=== PATIENT | female | born 1995 | race African-American/Black ===

== ENCOUNTER 2017-12-28 19:27 | Emergency (ER) | payer OTHER ==
[2017-12-28] MEDS ORDERED: Lidocaine 1% PF 5 ML VIAL ONE (19:57)
== END 2017-12-28 20:21 | disposition home or self-care (01) ==
LOC: ERS 19:27
DX: N75.1 Abscess of Bartholin's gland (principal); M41.9 Scoliosis, unspecified
CPT/HCPCS: 56420; 87070; 87205; J2001

== ENCOUNTER 2018-01-01 15:36 | Emergency (ER) | payer OTHER ==
[2018-01-01] MEDS ORDERED: Lidocaine 1% PF 5 ML VIAL ONE (16:26)
[2018-01-01] MEDS ORDERED: Sodium Bicarbonate 2.5 MEQ/5 ML VIAL ONE (16:27)
== END 2018-01-01 16:04 | disposition home or self-care (01) ==
LOC: ERS 15:36
DX: N75.1 Abscess of Bartholin's gland (principal); M41.9 Scoliosis, unspecified
CPT/HCPCS: 56420; 96372; J2001

== ENCOUNTER 2018-10-06 13:49 | Outpatient (CLI) | payer OTHER ==
--- NOTE | 2018-10-06 15:56 | ULT ---
OBSTETRIC SONOGRAM UMBILICAL ARTERY DUPLEX EXAM: HISTORY: Intrauterine growth retardation. Third-trimester gestation. FINDINGS: Multiple transabdominal sonographic views of the gravid uterus show a single uterine gestation in cep halic presentation. Cervix is obscured. Grade II placenta is anterior. Amniotic fluid is within no rmal limits. Advanced age limits anatomic detail. Amniotic fluid is unremarkable. Measuremen ts are as follows: Biparietal diameter: 34 weeks 6 days Head circumference: 36 weeks 1 day Abdominal circumference: 32 weeks 6 days Femur length: 36 weeks 2 days Estimated date of delivery based on today's sonogram is 11/09/2018. Hadlock percentile 2%. Estimated weight 5 pounds 4 ounces (2394 gm). Good color and spectral Doppler flow within the umbilical artery. Umbilical artery resistive index i s 0.6. S/D ratio is 2.3. IMPRESSION: Single viable intrauterine gestation that is small for gestational age. Estimated weight 2394 gm. Estimated gestational age based on today's sonogram 35 weeks 1 day. No focal abnormalities are visible. POS: NADEEN
== END 2018-10-06 13:50 | disposition home or self-care (01) ==
LOC: BICULT 13:49
PROVIDERS: ATTEND Student in an Organized Health Care Education/Training Program
DX: O98.719 Human immunodeficiency virus [HIV] disease complicating pregnancy, unspecified trimester (principal); Z3A.35 35 weeks gestation of pregnancy
CPT/HCPCS: 76700; 76805

== ENCOUNTER 2018-10-08 06:34 | Inpatient (IN) | payer OTHER ==
[2018-10-08 07:27] VITALS: BMI 21.6
[2018-10-08] MEDS: Lactated Ringer's 1,000 ML IV SCH ×2 (07:30→10:18)
[2018-10-08] MEDS ORDERED: Butorphanol Tartrate 1 MG/ML VIAL SLOW IVP PRN (08:14)
[2018-10-08] MEDS ORDERED: Ondansetron PF 4 MG/2 ML Vial IVP PRN (08:14)
[2018-10-08] MEDS ORDERED: Acetaminophen 500 MG TAB PO PRN (08:14)
[2018-10-08] MEDS ORDERED: Lidocaine 1% (PF) 30 ML VIAL SC PRN ×2 (08:14→09:23)
[2018-10-08] MEDS ORDERED: Promethazine HCl 25 MG/ML VIAL IM PRN (08:14)
[2018-10-08] MEDS ORDERED: NS / Oxytocin 40 units/1000ml 1,000 ML IV PRN (08:14)
--- NOTE | 2018-10-08 08:23 | PDOC.LDHP ---
Labor and Delivery H&P Chief complaint: scheduled induction HPI: 22 yo @ 38.2 wks by 14.1 wk US presents for induction. Last cervical check at clinic /-2. Denies vaginal discharge, bleeding, contractions. Feels movement. Has been compliant with HIV medication, last took yesterday. Did not bring with her to hospital. PCP: Dr. Miller Current gestational age (weeks): 38 (38.2) Grav: 2 Para: 1 OB History Details: 1 normal vaginal delivery Current complications: other (HIV+, anemia) Current medications: pre-luis vitamins, iron, other (HIV antiviral) Previous surgical history: other (scoliosis surgery) Allergies/Adverse Reactions: Allergies Allergy/AdvReac Type Severity Reaction Status Date / Time No Known Allergies Allergy Verified 10/08/18 07:28 Social history: none - Physical Exam Vital signs reviewed and normal: yes General: NAD Heart: RRR Lungs: CTAB Abdomen: NTTP Extremeties: no edema FHT: category 1 (135/mod/+accel/no decel) - Vaginal Exam cm dilated: 3 (per nurse) Effacement: 75% Station: -2 - OB Labs Blood type: O RH: positive Antibody Screen: negative HIV: positive HEPSAg: negative 1 hour GCT: negative (73) GBS: negative Rubella: immune Additional Labs: Sickle cell negative Hgb 9.9 09/22 HIV viral copy <20 - Assessment L&D Assessment: medically indicated induction - Plan Plan: admit to L&D -: IOL - cervical check by nurse /-2, soft, posterior - Bishops score 8, will start pitocin - CAT I - does not desire epidural HIV+ - managed by Dr. Delarosa. Compliant on HAART with VL <1000 during entire - Last viral load 09/2018 was <20 - Last took home med yesterday. Did not bring with her. - Will start AZT therapy Anemia - continue PNV and iron Dispo: admit to L&D for medically indicated IOL Addendum - Attending - Attending Attestation Date/Time: 10/08/18 5166 I personally evaluated the patient and discussed the management with Dr. Miller and Adali. I agree with and repeated the History, Examination, Assessment and Plan documented above with any addition or exceptions noted below. HIV+, undetectable VL -continue home meds -AZT in labor per protocol -avoid FSE/instrumentation if possible -AZT for pp; discussed with neonatology FGR, 2% on most recent sono with normal dopplers -induction recommended as soon as possible by MFM -pitocin for induction GBS negative. Does not desire epidural.
[2018-10-08 08:45] LABS: Hemoglobin 9.2 g/dL (12.0-16.0); Mean Corpuscular HGB CONC 31.7 g/dL (32.0-36.0); Mean Corpuscular Hemoglobin 24.8 pg (27.0-31.0); Mean Corpuscular Volume 78.2 fL (78.0-98.0); Platelet Count 203 thou/uL (130-400); RBC Distribution Width 14.8 % (11.5-14.5); White Blood Cell (WBC) Count 10.6 thou/uL (4.8-10.8)
[2018-10-08 09:17] LABS: HBSAg Index 0.23 S/CO (0-0.99); Hep B Surf Ag Non-Reactive S/CO (NonReactive); Syphilis Antibody Nonreactive (Nonreactive); Syphilis Antibody Index 0.04 S/CO (<1.00 Non-Reactive)
[2018-10-08] MEDS ORDERED: Zidovudine 200 MG/20 ML VIAL IVPB SCH (09:30)
[2018-10-08] MEDS ORDERED: NS w/ Oxytocin 10 units 500 ML IV SCH (09:30)
[2018-10-08] MEDS ORDERED: ZIDOVUDINE IVPB SCH (10:45)
[2018-10-08] MEDS ORDERED: WATER IVPB SCH (10:45)
[2018-10-08] MEDS ORDERED: DEXTROSE 5% IVPB SCH (10:45)
--- NOTE | 2018-10-08 10:56 | PDOC.LDPN ---
Labor & Delivery Progress Note - Subjective Subjective: comfortable, no concerns - Objective Vital signs reviewed and normal: yes General: NAD FHT: category 1 (130/mod/+accel/no decel) [place] contractions every: 7 min Plan: pitocin for augmentation -: IOL - cervical check by nurse /-2, soft, posterior, Bishops score 8 - CAT I - does not desire epidural - pitocin started @ 1000. Pit currently at 8 with ctx q7min, nurse plans to increase pit. Plan for cervical check 4 hrs after starting pit. HIV+ - managed by Dr. Delarosa. Compliant on HAART with VL <1000 during entire - Last viral load 09/2018 was <20 - Last took home med yesterday. Did not bring with her, mother said she would be able to bring to hospital tomorrow. - Will start AZT therapy, pharmacy to send up to floor Anemia - continue PNV and iron Addendum - Attending - Attending Attestation Date/Time: 10/08/18 7189 I personally evaluated the patient and discussed the management with Dr. Bro. I agree with the History, Examination, Assessment and Plan documented above with any addition or exceptions noted below.
[2018-10-08] MEDS ORDERED: Zidovudine 400 MG in Dextrose 5% in Water 250 ML IVPB SCH (11:00)
--- NOTE | 2018-10-08 14:16 | PDOC.LDPN ---
Labor & Delivery Progress Note - Subjective Subjective: painful contractions - Objective Vital signs reviewed and normal: yes General: breathing through contractions Effacement: 90% Station: -2 FHT: category 1 [place] contractions every: 2 - Assessment (1) HIV (human immunodeficiency virus infection) Current Visit: Yes Status: Acute (2) Term Code(s): Z34.80 - ENCOUNTER FOR SUPRVSN OF NORMAL , UNSP TRIMESTER Current Visit: Yes Status: Acute -: Labor check - /-2 - Cat 1 strip, no decels, cxn q2-3 minutes - will plan for AROM in order to control fluids - anticipatory management HIV+ - managed by Dr. Delarosa. Compliant on HAART with VL <1000 during entire - Last viral load 09/2018 was <20 - On AZT IV Anemia - continue PNV and iron Addendum - Attending - Attending Attestation Date/Time: 10/08/18 7514 I personally evaluated the patient and discussed the management with Dr. Bro. I agree with the History, Examination, Assessment and Plan documented above with any addition or exceptions noted below.
--- NOTE | 2018-10-08 14:37 | PDOC.OPDEL ---
OB Operative/Delivery Note Delivery Dr/Surgeon: Angela Medina Assist: Sravanthi Pre-Delivery Diagnosis: medically indicated induction Procedure/Post Delivery Dx: spontaneous vaginal delivery Weeks gestation: 38 (38.2wks) Anesthesia: none - Findings A Sex: male - 1 min: 9 - 5 min: 9 - Additional Findings/Plan Placenta delivered: spontaneous Repaired Obstetrical Laceration: 1st degree (hemostatic, did not require repair) Estimated blood loss: 200ml Compilations/Other Findings: This is 22yo F @ 38.2wks who delivered a viable M infant at 1425 on . EBL 200ml. Following an antepartum course complicated by HIV + as well as IUGR, a vigorous M was delivered over an intact perineum in the right occipitoanterior position. Anterior Shoulder and then remainder of the body delivered. Nuchal cord x 1. The head was held down and mouth and nares were bulb suctioned. Cord clamped after delayed cord clamping and cut and cord blood collected. Placenta delivered intact with a 3 vessel cord noted. Fundal massage was performed and the fundus was firm. The cervix and vagina were inspected and found to have a small first degree lac that was hemostatic and did not require repair. Infant went to nursery in good condition for routine care. Apgars were 9/9 at 1 & 5 minutes, respectively. Patient tolerated delivery well and went to after routine recovery/care. Addendum - Attending - Attending Attestation Date/Time: 10/09/18 0661 I personally evaluated the patient and discussed the management with Dr. Miller and Adam. I agree with the History, Examination, Assessment and Plan documented above with any addition or exceptions noted below. I was present for the entire delivery.
[2018-10-08] MEDS ORDERED: Lanolin Ointment 7 GM TUBE TOP PRN (14:40)
[2018-10-08] MEDS ORDERED: Preparation H Ointment 28 GM TUBE PR PRN (14:40)
[2018-10-08] MEDS ORDERED: Adacel (T-DAP) 0.5 ML SYRINGE IM ONE (14:40)
[2018-10-08] MEDS ORDERED: diphenhydrAMINE 25 MG CAP PO PRN (14:40)
[2018-10-08] MEDS ORDERED: Bisacodyl 10 MG SUPP PR PRN (14:40)
[2018-10-08] MEDS ORDERED: Misoprostol 200 MCG TAB VAG PRN (14:40)
[2018-10-08] MEDS ORDERED: Methylergonovine 0.2 MG TAB PO PRN (14:40)
[2018-10-08] MEDS ORDERED: Milk Of Magnesia 30 ML UDCUP PO PRN (14:40)
[2018-10-08] MEDS ORDERED: Ibuprofen 800 MG TAB PO PRN (14:40)
[2018-10-09 06:49] VITALS: BP 105/53; TEMP 98.5
[2018-10-09 07:30] LABS: Hemoglobin 8.1 g/dL (12.0-16.0); Mean Corpuscular HGB CONC 31.7 g/dL (32.0-36.0); Mean Corpuscular Hemoglobin 24.9 pg (27.0-31.0); Mean Corpuscular Volume 78.5 fL (78.0-98.0); Mean Platelet Volume 10.6 fL (7.4-10.4); Platelet Count 182 thou/uL (130-400); RBC Distribution Width 14.9 % (11.5-14.5); Red Blood Cell (RBC) Count 3.25 mill/uL (4.20-5.40); White Blood Cell (WBC) Count 12.3 thou/uL (4.8-10.8)
--- NOTE | 2018-10-09 07:51 | PDOC.PP ---
Post Progress Note Post Day #: 1 Subjective: Pt reports doing well overnight. Denies any acute events overnight. Pt has been getting up and walking around. Pt denies any headache, lightheadness or dizziness. Denies any fever, chills. Denies any chest pain or SOB. Pt reports lochia as light. tolerating PO. Denies any N/V/D/C. Pt says she feels like she is ready to go home. PO intake tolerated: yes Flatus: yes Ambulation: yes Vital Signs (12 hours) Temp Pulse Resp BP Pulse Ox 10/09/18 05:00 98.5 F 85 18 105/53 L 10/08/18 20:00 98.6 F 86 18 107/57 L 100 Weight Weight 58.967 kg - Physical Examination General: NAD Cardiovascular: no m/r/g, RRR Respiratory: clear to auscultation bilaterally, non-labored breathing Abdominal: + bowel sounds, lochia (reported as light), no distention, appropriately TTP Fundus firm & at: below umbilicus Extremities: negative homans (B) Neurological: no gross focal deficits Psychiatric: A&Ox3, normal affect Result Diagrams: 10/09/18 06:01 Additional Labs: Post Labs Blood Type O POSITIVE 10/08/18 07:50 Hep Bs Antigen Non-Reactive S/CO (NonReactive) 10/08/18 07:50 (1) Anemia affecting Code(s): O99.019 - ANEMIA COMPLICATING , UNSPECIFIED TRIMESTER Status : Acute (2) HIV (human immunodeficiency virus infection) Status: Acute (3) Term Code(s): Z34.80 - ENCOUNTER FOR SUPRVSN OF NORMAL , UNSP TRIMESTER Status: Acute - Assessment/Plan 22 yo ->2 came in for IOL due to IUGR. Delivered a SGA M via on 10/08 @ 14:25 -Routine Post care -Pt pain minimal. -Mom bottle feeding. -Lochia reported as light. HIV+ - managed by Dr. Delarosa. Compliant on HAART with VL <1000 during entire - Last viral load 09/2018 was <20 -tx ppx with AZT during delivery. Restart home med today. Anemia - continue PNV and iron BID -Hgb down from 9.2->8.1 today. Denies any signs or sx's. Addendum - Attending - Attending Attestation Date/Time: 10/09/18 5670 I personally evaluated the patient and discussed the management with Dr. Miller and Adali. I agree with and repeated the History, Examination, Assessment and Plan documented above with any addition or exceptions noted below. Patient doing well. Continue home ART. Recommend LARC for BC. Follow up in clinic. Discussed importance of AZT for in detail and will defer circ to outpatient.
[2018-10-09] MEDS ORDERED: Prenatal Vitamin 1 TAB PO SCH (09:00)
[2018-10-09] MEDS ORDERED: (Bictegrav/Emtricit/Tenofov Ala [Biktarvy 50-200-25 Mg Tablet] PO SCH (09:00)
[2018-10-09] MEDS: Ferrous Sulfate 325 MG TAB PO SCH ×2 (09:36→09:41)
[2018-10-09] MEDS: Docusate Calcium (SURFAK) 240 MG CAP PO SCH ×2 (09:36→09:41)
[2018-10-09] MEDS: Lactated Ringer's 1,000 ML IV SCH ×2 (09:41→09:42)
== END 2018-10-09 18:00 | disposition home or self-care (01) | DRG 807 ==
LOC: L&D 06:34 → 3SW 17:27
PROVIDERS: ADMIT Emergency Medicine; ATTEND Emergency Medicine
PROC: 10E0XZZ Delivery of Products of Conception, External Approach (ICD-10-PCS; principal; 2018-10-08)
PROC: 3E033VJ Introduction of Other Hormone into Peripheral Vein, Percutaneous Approach (ICD-10-PCS; 2018-10-08)
DX: O98.72 Human immunodeficiency virus [HIV] disease complicating childbirth (principal); Z37.0 Single live birth; Z21 Asymptomatic human immunodeficiency virus [HIV] infection status; O69.81X0 Labor and delivery complicated by cord around neck, without compression, not applicable or unspecified; Z3A.38 38 weeks gestation of pregnancy; O70.0 First degree perineal laceration during delivery; O99.02 Anemia complicating childbirth; D64.9 Anemia, unspecified
CPT/HCPCS: 36415; 85027; 86780; 86850; 86900; 86901; 87340; 88307; 90715; J2001; J3485; J7070

== ENCOUNTER 2019-08-26 08:54 | Day surgery (SDC) | payer OTHER ==
[2019-08-26 09:40] VITALS: BP 112/71; TEMP 98.2; BMI 21.4
[2019-08-26] MEDS ORDERED: Iron Sucrose Complex 500 MG in Sodium Chloride 0.9% 250 ML 250 ML IVPB SCH (10:00)
[2019-08-26] MEDS ORDERED: Acetaminophen 500 MG TAB PO SCH (10:00)
--- NOTE | 2019-08-26 12:50 | PDOC.FPROB ---
FMR OB H&P: HPI - History of Present Illness Chief Complaint: Iron Infusion Indentification: History of Present Illness: Mrs. Stephens is a 23 y/o female @ 33.5W by LMP with a PMH significant for HIV who presents to the L&D Floor for an iron infusion. Per the patient, the has been uneventful thus far, and she has had appropriate follow-up for all of her OB and MFM appointments. She states that her N/V has been well-controlled, and that she has felt good movement without loss of fluid, vaginal bleeding or abdominal pain. She states that she was "borderline previa" but that she received a TVUS yesterday that demonstrated that she was no longer at risk for placenta previa. She does not know why she needs an iron infusion, only that she has consistently had "low iron". She denies any prolonged bleeding, fevers, chills, severe headaches, abnormal weight loss/gain, N/V/D, changes in vision, chest pain, shortness of breath, muscle aches/pains, significant swelling of her hands and feet, trauma, or drug/EtOH/tobacco abuse. She states that she sees Dr. Delarosa for her HIV follow-up, and states that she has been very compliant with her Bictarvy regimen , and has not missed any doses or had any adverse side-effects. Primary Care Physician: Dr. 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 Did state that one of her children has Sickle Cell Trait FMR OB H&P: Medications - Current Home Medications: Medication Instructions Recorded Confirmed Type Bictegrav/Emtricit/Tenofov Ala 1 tab PO DAILY 10/08/18 08/26/19 History [Biktarvy 50-200-25 mg Tablet] Acetaminophen [Tylenol Extra 500 mg PO Q6H PRN tab 10/09/18 08/26/19 Rx Strength] Ferrous Sulfate [Feosol] 325 mg PO BID-WM tab 10/09/18 08/26/19 Rx Vitamin 1 tab PO DAILY tab 10/09/18 08/26/19 Rx Allergies/Adverse Reactions: Allergies Allergy/AdvReac Type Severity Reaction Status Date / Time No Known Allergies Allergy Verified 08/26/19 09:37 FMR OB H&P: ROS - Review of Systems General: reports: weight/appetite/sleep changes (Weight gain). denies: fever/ chills, fatigue, recent trauma Eyes: denies: vision changes ENT: denies: nasal congestion, frequent nose bleed, sore throat Cardiovascular: denies: chest pain, edema Respiratory: reports: cough (Mild, patient unconcerned). denies: shortness of breath Gastrointestinal: denies: abdominal pain, nausea, vomiting, diarrhea Genitourinary (Female): denies: dysuria, hematuria Musculoskeletal: denies: pain, stiffness, arthritis/arthralgias Neurologic: denies: syncope, weakness, loss of counsciousness, headache Integumentary: denies: lesions Hematologic/Lymphatic: denies: prolonged or excessive bleeding FMR OB H&P: Vital Signs - Maternal Vital signs: Vital Signs - First Documented Temp Pulse Resp BP 98.2 F 75 18 112/71 08/26/19 09:22 08/26/19 09:22 08/26/19 09:22 08/26/19 09:22 - Heart Tones Baseline: 140 Variability: moderate Acceleration: present Deceleration: absent FMR OB H&P: Physical Exam - Physical Exam General: NAD HEENT: normocephalic and atraumatic, PERRLA, EOMI, MMM, conjunctiva clear, no scleral icterus, grossly normal vision, grossly normal hearing, normal nasal mucosa, oropharynx clear, good dention Neck: supple, FROM, trachea midline, no LAD Chest: non-tender to palpation, no lesions Breast: symmetric, non-tender Heart: RRR, normal S1/S2, no murmurs/rubs/gallops, pulses present, no edema General: CTAB, no respiratory distress, good air movement, no rales/rhonchi, no wheezing, no retractions Abdomen: gravid, non-tender, no masses Musculoskeletal: pulses present, FROM in all four extremities, no misalignment/ asymmetry, no atrophy Neurological: sensation to pain,touch and proprioception grossly normal Skin: no rash, no jaundice Lymphatic: no unusual bruising or bleeding, no purpura, no petechia, no LAD Psychiatric: intact recent and remote memory, good judgement and insight - Pelvic Exam Presentation: Cephalic, per patient FMR OB H&P: A/P - Problem List (1) Anemia affecting Current Visit: No Status: Acute Code(s): O99.019 - ANEMIA COMPLICATING , UNSPECIFIED TRIMESTER Assessment and Plan: 1. Microcytic Anemia -Patient currently stable on the L&D Floor -Patient admits to a history of "low iron", but has little insight into general health -Iron Studies: Fe: 7 / Ferritin: 21 / TIBC: 495 / TIBC % Saturation: 4 -Recent blood smear demonstrated absolute neutropenia and microcytic anemia -Administer Fe Infusion per L&D Protocol -Ensure adequate follow-up in clinic with Dr. Miller and Dr. Delarosa -Plan for DC prior transfusion cessation Dispo: Patient currently stable during Fe Infusion. Expected LOS < 24H Discussion: Date/Time: 08/26/19 1242 This H&P was discussed with [] and [] who agree with the above documentation and plan. Addendum - Attending - Attending Attestation Date/Time: 08/26/19 1444 I personally evaluated the patient and discussed the management with Dr. Charles I agree with the History, Examination, Assessment and Plan documented above with any addition or exceptions noted below - 23 yo @33.5 weeks with h/ o HIV and anemia. Here for iron infusion. Denies any complaints. (+) FM. Afebrile VSS A/P: 1) IUP@33.5 weeks here for iron infusion due to anemia. Iron infusion per protocol. Follow-up as scheduled in clinic. Category 1 FHTs.
== END 2019-08-26 15:05 | disposition home or self-care (01) ==
LOC: SDC 08:54 → EDSTATUS 09:00 → SDC 15:05
PROVIDERS: ATTEND Family Medicine
DX: O99.013 Anemia complicating pregnancy, third trimester (principal); D50.9 Iron deficiency anemia, unspecified; O98.713 Human immunodeficiency virus [HIV] disease complicating pregnancy, third trimester; Z21 Asymptomatic human immunodeficiency virus [HIV] infection status; Z3A.33 33 weeks gestation of pregnancy; Z79.899 Other long term (current) drug therapy
CPT/HCPCS: 96361; 96365; 96366; 99282; J1756; J7050

== ENCOUNTER 2019-09-03 17:15 | Inpatient (IN) | payer OTHER ==
--- NOTE | 2019-09-03 14:07 | PDOC.FPROB ---
FMR OB H&P: HPI - History of Present Illness Chief Complaint: IOL Indentification: 23 yo @ 38.5 wks History of Present Illness: 23 yo comes in for medically indicated IOL 2/2 HIV+. Recommendation for delivery @ 38 weeks was by MFM. Pt viral load was 210 on last check with ID, Dr. Delarosa, back in July. Pt appropriated for . Primary Care Physician: Angela FMR OB H&P: Current - Care : 3 Para: 2001 Gestational age: 38.5 Due date: 09/12/19 - OB Labs Blood type: O RH: positive Antibody Screen: negative HIV: positive RPR: negative HepBsAg: negative Rubella: immune Quad screen: negative Urine drug screen: not done Gonorrhea: negative Chlamydia: negative 1 hour gtt: 102 A1c: 5.7 GBS: positive H&H: 9.7->8.6->8.2->8.3 Additional labs: Hep C neg Tb neg Vit B12 571, Folic Acid 9.7, Ferritin 7, Iron 21, Unsat IBC 474, Total IBC 495, %iron sat 4% FMR OB H&P: History - Past Medical History PMH: HIV, Microcytic Anemia - OB History OB History: 2 prior pregnancies. Delivered via SVDx2 - DISTRIBUTION DISPATCHER History DISTRIBUTION DISPATCHER History: Denies any abnormal paps. Hx HIV - Surgical History Sx History: hx scolosis surgery - Social History Social History: Denies any smoking, alcohol or illicit drug use - Family History Family History: Noncontributory 1 kid has sickle cell trait FMR OB H&P: Medications - Current Home Medications: Medication Instructions Recorded Confirmed Type Bictegrav/Emtricit/Tenofov Ala 1 tab PO DAILY 10/08/18 09/03/19 History [Biktarvy 50-200-25 mg Tablet] Acetaminophen [Tylenol Extra 500 mg PO Q6H PRN tab 10/09/18 09/03/19 Rx Strength] Ferrous Sulfate [Feosol] 325 mg PO BID-WM tab 10/09/18 09/03/19 Rx Vitamin 1 tab PO DAILY tab 10/09/18 09/03/19 Rx Allergies/Adverse Reactions: Allergies Allergy/AdvReac Type Severity Reaction Status Date / Time No Known Allergies Allergy Verified 08/26/19 09:37 FMR OB H&P: ROS - Review of Systems General: denies: fever/chills, weight/appetite/sleep changes, fatigue Eyes: denies: vision changes, double vision ENT: denies: nasal congestion, sore throat Cardiovascular: denies: chest pain, palpitation, edema Respiratory: denies: cough, congestion, shortness of breath Gastrointestinal: denies: abdominal pain, nausea, vomiting, diarrhea Genitourinary (Female): denies: dysuria, vaginal discharge, vaginal bleeding, contractions, vaginal pressure Musculoskeletal: denies: pain, tenderness Neurologic: denies: weakness, headache Integumentary: denies: itching, rash, lesions Psychological: denies: depression, anxiety FMR OB H&P: Vital Signs - Maternal Vital signs: BP 116/63 - Heart Tones Baseline: 140 Variability: moderate Acceleration: present Deceleration: absent Category: category 1 [place] contractions every: 5-6 min FMR OB H&P: Physical Exam - Physical Exam General: NAD, awake, alert and oriented HEENT: normocephalic and atraumatic, EOMI, MMM, grossly normal vision, grossly normal hearing Neck: supple, FROM Heart: RRR, normal S1/S2, no murmurs/rubs/gallops, pulses present, no edema General: CTAB, no respiratory distress, good air movement, no wheezing Abdomen: soft, non-tender Musculoskeletal: pulses present, FROM in all four extremities Neurological: sensation to pain,touch and proprioception grossly normal, no focal deficit Skin: no rash, good tugor Lymphatic: no unusual bruising or bleeding Psychiatric: intact recent and remote memory, normal mood and affect - Pelvic Exam Vulva: normal hair distribution, no lesions, no discharge, no blood SVE: /50-60/-3 Welch score: 5 Membranes: intact Presentation: cephalic/vertex FMR OB H&P: A/P - Problem List (1) Anemia affecting Status: Acute Code(s): O99.019 - ANEMIA COMPLICATING , UNSPECIFIED TRIMESTER (2) HIV (human immunodeficiency virus infection) Status: Acute (3) Term Status: Acute Code(s): Z34.80 - ENCOUNTER FOR SUPRVSN OF NORMAL , UNSP TRIMESTER Disposition: 23 yo @ 38.5 weeks presents for IOL 2/2 HIV #IOL -SVE 350/-3. Welch score 5 -Will give cytotec for cervical ripening -Will continuously monitor -There was concern for placenta previa but was ruled out at recent [facility] appointment. #HIV -Viral load 210 at last check with ID, Dr. Delarosa. Pt below #1000. Safe for routine -Zidovudine 2mg/kg/hr for loading then dose then continuously give 1mg/kg/hr for remainder labor -Avoid AROM, FSE and Methergine if all at possible #GBS positive -Will tx with ppx penicillin Microcytic Anemia of -Last hgb 8.3. Recently received Iron infusion 08/26. Will check CBC at admission -Iron labs low at check a few months ago. Discussion: Date/Time: 09/03/19 1305 This H&P was discussed with Dr. Miller and Dr. Fishman who agree with the above documentation and plan. Addendum - Attending - Attending Attestation Date/Time: 09/04/19 3279 I personally evaluated the patient and discussed the management with Dr. Miller and team. I agree with the History, Examination, Assessment and Plan documented above with any addition or exceptions noted below. Induction per [facility]. AZT per their recommendations as well.
[~2019-09-03 17:15] MED LIST: Acetaminophen 500 MG TAB PO PRN; Butorphanol Tartrate 1 MG/ML VIAL SLOW IVP PRN; Carboprost 250 MCG/ML AMP IM PRN; Ibuprofen 800 MG TAB PO PRN; Lidocaine 1% (PF) 30 ML VIAL SC PRN; Misoprostol 200 MCG TAB PR PRN; NS / Oxytocin 40 units/1000ml 1,000 ML IV PRN; Ondansetron PF 4 MG/2 ML Vial IVP PRN; Penicillin G Potassium 5 MILL.UNITS in Sodium Chloride 0.9% 100 ML IVPB SCH; Promethazine HCl 25 MG/ML VIAL IM PRN; hydrALAZINE 20 MG/ML VIAL SLOW IVP PRN
[2019-09-03 18:21] VITALS: BMI 21.8
[2019-09-03] MEDS: Lactated Ringer's 1,000 ML IV SCH (18:40)
[2019-09-03 19:31] LABS: HBSAg Index 0.19 S/CO (0-0.99); Hep B Surf Ag Non-Reactive S/CO (NonReactive)
[2019-09-03 19:34] LABS: Syphilis Antibody Nonreactive (Nonreactive); Syphilis Antibody Index 0.04 S/CO (<1.00 Non-Reactive)
[2019-09-03] MEDS ORDERED: Zidovudine 200 MG/20 ML VIAL IVPB SCH ×2 (20:45)
[2019-09-03] MEDS ORDERED: WATER IVPB SCH (21:30)
[2019-09-03] MEDS ORDERED: ZIDOVUDINE IVPB SCH (21:30)
[2019-09-03] MEDS ORDERED: DEXTROSE 5% IVPB SCH (21:30)
[2019-09-04] MEDS ORDERED: Misoprostol 100 MCG TAB VAG SCH
[2019-09-04] MEDS: Penicillin G 2.5 MILL.units 2.5 MILL.UNITS in Premix Bag 1 BAG IVPB SCH ×3 (01:17→12:54)
[2019-09-04] MEDS ORDERED: NS w/ Oxytocin 10 units 500 ML IV SCH (02:30)
[2019-09-04] MEDS: Lactated Ringer's 1,000 ML IV SCH ×2 (03:21→12:54)
[2019-09-04 06:21] LABS: Hemoglobin 10.1 g/dL (12.0-16.0); Mean Corpuscular HGB CONC 31.3 g/dL (32.0-36.0); Mean Corpuscular Hemoglobin 24.4 pg (27.0-31.0); Mean Corpuscular Volume 77.8 fL (78.0-98.0); Mean Platelet Volume 10.8 fL (7.4-10.4); Platelet Count 183 thou/uL (130-400); RBC Distribution Width 21.8 % (11.5-14.5); Red Blood Cell (RBC) Count 4.14 mill/uL (4.20-5.40); White Blood Cell (WBC) Count 10.6 thou/uL (4.8-10.8)
[2019-09-04] MEDS ORDERED: Misoprostol 200 MCG TAB ONE (08:13)
[2019-09-04] MEDS ORDERED: Adacel (T-DAP) 0.5 ML SYRINGE IM ONE (08:50)
[2019-09-04] MEDS ORDERED: Lanolin Ointment 7 GM TUBE TOP PRN (08:50)
[2019-09-04] MEDS ORDERED: Benzocaine-Menthol 82.5 ML CAN TOP PRN (08:50)
[2019-09-04] MEDS ORDERED: Milk Of Magnesia 30 ML UDCUP PO PRN (08:50)
[2019-09-04] MEDS ORDERED: diphenhydrAMINE 25 MG CAP PO PRN (08:50)
[2019-09-04] MEDS ORDERED: HYDROcodone/Acetaminophen 5/325 mg Tablet PO PRN (08:50)
[2019-09-04] MEDS ORDERED: Preparation H Ointment 28 GM TUBE PR PRN (08:50)
[2019-09-04] MEDS ORDERED: Bisacodyl 10 MG SUPP PR PRN (08:50)
[2019-09-04] MEDS ORDERED: Prenatal Vitamin 1 TAB PO SCH ×2 (09:00)
[2019-09-04] MEDS ORDERED: Bictegrav/Emtricit/Tenofov Ala [Biktarvy 50-200-25 Mg Tablet] PO SCH (09:00)
[2019-09-04] MEDS ORDERED: Ferrous Sulfate 325 MG TAB PO SCH ×3 (09:00→17:00)
--- NOTE | 2019-09-04 12:13 | PDOC.LDPN ---
Labor & Delivery Progress Note - Subjective Subjective: painful contractions, vaginal pressure - Objective Vital signs reviewed and normal: yes General: NAD, breathing through contractions Uterine fundus: non tender SVE: 6:30 Dilation: 5 Effacement: 75% Station: -1 FHT: category 1 (FHR 145), variability present [place] contractions every: 2-3 minutes - Assessment (1) Anemia affecting Code(s): O99.019 - ANEMIA COMPLICATING , UNSPECIFIED TRIMESTER Current Visit: No Status: Acute (2) HIV (human immunodeficiency virus infection) Current Visit: No Status: Acute (3) Term Code(s): Z34.80 - ENCOUNTER FOR SUPRVSN OF NORMAL , UNSP TRIMESTER Current Visit: No Status: Acute Plan: continue plan of care, pitocin for augmentation -: 23 yo @ 38.5 weeks presents for IOL 2/2 HIV #IOL -SVE /-1. -Pitocin for augmentation. -Continue to check with pain changes and every hour. -Pt does not have epidural. #HIV -Viral load 210 at last check with ID, Dr. Delarosa. Pt below #1000. Safe for routine -Zidovudine 2mg/kg/hr for loading then dose then continuously give 1mg/kg/hr for remainder labor -Avoid AROM, FSE and Methergine if all at possible #GBS positive -Been getting penicillin ppx Microcytic Anemia of -Last hgb 8.3. Recently received Iron infusion 08/26. -CBC hgb 10.1, MCV 77
[2019-09-04] MEDS: Docusate Calcium (SURFAK) 240 MG CAP PO SCH ×2 (12:53→21:37)
[2019-09-05 06:00] LABS: #Basophils 0.1 thou/uL (0.0-0.2); #Eosinphils 0.2 thou/uL (0.0-0.7); #Monocytes 0.5 thou/uL (0.11-0.59); #Neutrophils 9.8 thou/uL (1.40-6.50); %Basophils 0.9 % (0.0-1.0); %Eosinophils 1.4 % (0.0-10.0); %Lymphocytes 15.5 % (21.0-51.0); %Monocytes 4.2 % (0.0-10.0); Anisocytosis SLIGHT = 6-15 cells (100X) (0-5/hpf); Elliptocytes SLIGHT = 2-5 cells (100X) (0-1/hpf); Hemoglobin 8.2 g/dL (12.0-16.0); MDiff Complete? YES; Mean Corpuscular HGB CONC 32.2 g/dL (32.0-36.0); Mean Corpuscular Hemoglobin 25.2 pg (27.0-31.0); Mean Corpuscular Volume 78.3 fL (78.0-98.0); Mean Platelet Volume 10.9 fL (7.4-10.4); Platelet Count 142 thou/uL (130-400); RBC Distribution Width 21.9 % (11.5-14.5); Red Blood Cell (RBC) Count 3.24 mill/uL (4.20-5.40); White Blood Cell (WBC) Count 12.6 thou/uL (4.8-10.8)
[2019-09-05] MEDS: Docusate Calcium (SURFAK) 240 MG CAP PO SCH (08:12)
[2019-09-05 08:42] VITALS: BP 95/51; TEMP 97.8
--- NOTE | 2019-09-05 08:49 | PDOC.PP ---
Post Progress Note Post Day #: 1 Subjective: Pt reports doing well. Has no acute concerns or complaints at this time. Denies any pain. Reports tolerating PO. Reports minimal lochia. Denies any fever/ chills. Denies any chest pain or SOB. PO intake tolerated: yes Flatus: yes Ambulation: yes Vital Signs (12 hours) Temp Pulse Resp BP Pulse Ox 09/05/19 08:41 97.8 F 79 20 95/51 L 96 09/05/19 03:22 98.2 F 66 12 109/52 L 99 09/04/19 23:24 98.1 F 75 12 112/49 L 98 Weight Weight 59.421 kg - Physical Examination General: NAD Cardiovascular: no m/r/g, RRR Respiratory: clear to auscultation bilaterally, non-labored breathing Abdominal: + bowel sounds, lochia (reports as normal.), no distention, appropriately TTP Fundus firm & at: umbilicus Perineum: Intact. No sign of bleeding. Neurological: no gross focal deficits Psychiatric: A&Ox3, normal affect Result Diagrams: 09/05/19 04:25 Additional Labs: Post Labs Blood Type O POSITIVE 09/03/19 18:23 Hep Bs Antigen Non-Reactive S/CO (NonReactive) 09/03/19 18:23 (1) Anemia affecting Code(s): O99.019 - ANEMIA COMPLICATING , UNSPECIFIED TRIMESTER Status : Acute (2) HIV (human immunodeficiency virus infection) Status: Acute (3) Term Code(s): Z34.80 - ENCOUNTER FOR SUPRVSN OF NORMAL , UNSP TRIMESTER Status: Acute - Assessment/Plan 23 yo @ 38.6 weeks presents for IOL 2/2 HIV #Post Day 1 -Pt reports doing well. VSS -Reports pain well controlled -Pt ready for d/c. #HIV -Viral load 210 at last check with ID, Dr. Delarosa. Pt below #1000. Safe for routine -Received Zidovudine 2mg/kg/hr for loading then dose then continuously give 1mg/ kg/hr during the progression of labor -Pt to continue to take home Bitkarvy. #GBS positive -Adquately treated with 3 doses of penicillin Microcytic Anemia of -Hgb 10.1 on admission. Total QBL 680. -Hgb today 8.2. Pt reports being asx. -Will continue on Iron BID Addendum - Attending - Attending Attestation Date/Time: 09/05/19 1202 I personally evaluated the patient and discussed the management with Dr. Miller I agree with the History, Examination, Assessment and Plan documented above with any addition or exceptions noted below. Doing well and desires to go home. Will likely d/c mom and baby this afternoon pending completion of baby's routine lab work. Send on PO iron and bowel regimen. counseled on importance of adherence to iron supplementation. 1 week f/ u for repeat CBC. may need additional iron infusion at that time. Patient agreeable to this plan.
[2019-09-05] MEDS ORDERED: Ferrous Sulfate 325 MG TAB PO SCH ×3 (08:55→17:00)
--- NOTE | 2019-09-07 04:13 | PQF ---
[employer] EDY Jones LILLY CARTER [id number] CLINICAL DOCUMENTATION CLARIFICATION FORM: POST DISCHARGE Addendum to original discharge summary date: ____ Late entry note date: __ DATE: 09/07/2019 ATTN:LILLY CARTER Please exercise your independent, professional judgment in responding to the clarification form. Clinical indicators are provided on the bottom of this form for your review Please check appropriate box(s): [ x ] Acute blood loss anemia [ ] Post-op anemia related to acute blood loss [ ] Chronic Anemia [ ] Other diagnosis [ ] Unable to determine In addition, please specify: Present on Admission (POA): [ ] Yes [ x No [ ] Unable to determine For continuity of documentation, please document condition throughout progress notes and discharge summary. Thank You. CLINICAL INDICATORS - SIGNS / SYMPTOMS / LABS HGB 10.1 on 09/04 and 8.2 on 09/05 - Documented in Laboratory results HCT 32.2 on 09/04 to 25.2 on 09/05 - Documented in Laboratory results BP 97/52 on 09/04 and 95/51 on 09/05 - Documented in Vital signs RISK FACTORS Anemia affecting - Documented in PNs on 09/05 by Axel Miller Estimated blood loss - 485 HIV TREATMENTS: Ferrous sulfate 325 mg PO - Documented in Medication snapshot Will continue on Iron BID (This form is maintained as a part of the permanent medical record) 2014 [employer] All Rights Reserved Sandra [email or web address] [not provided] MTDD
--- NOTE | 2019-09-11 08:22 | DN ---
DATE OF PROCEDURE: 09/04/2019 DATE OF DELIVERY: 09/04/2019. RESIDENTS: 1. Anupam Gambino DO, PGY-1. 2. Axel Miller MD, PGY-3. ATTENDING: Shashank Magana MD PROCEDURE PERFORMED: Spontaneous vaginal delivery. ANESTHESIA: None. QBL: 495 mL. PREOPERATIVE DIAGNOSES: 1. Term intrauterine . 2. Human immunodeficiency virus positive with low-viral load. 3. Group B Streptococcus positive. 4. Microcytic anemia. POSTOPERATIVE DIAGNOSES: 1. Term intrauterine , delivered. 2. Human immunodeficiency virus positive with low-viral load. 3. Group B Streptococcus positive. 4. Microcytic anemia. INDICATIONS: A 23-year-old female, G3, P2, who presented to L and D for induction of labor secondary to HIV recommended by [facility]. DELIVERY NOTE: This is a 23-year-old female, G3, P2-0-0-2 at 38 and 6 weeks, who delivered a viable male at 0805 hours and following an uneventful antepartum course. The patient followed up with [facility], her ID doctors and high-risk OB as instructed. Her viral load was found to be 210, at her last visit with Dr. Delarosa, her Infectious Disease doctor, which is below a 1000 and safe for vaginal delivery. Following this, a vigorous male was delivered over an intact perineum in the occiput anterior position. Anterior shoulder and the remainder of body delivered. No nuchal cord. Head was held down. The mouth and nares were bulb suctioned. Cord clamped and cut. Cord blood collected. Placenta delivered intact with three-vessel cord noted. Fundal massage was performed, and fundus was firm. It would kind of go back and forth between being boggy and firm. At this time, we gave her a dose of methargen and then was noted to be firm. Cervix and vagina were inspected and found to be free of lacerations. Infant went to nursery in good condition for routine care. Apgars were 8 and 9 at one and five minutes respectively. The patient tolerated delivery well and went to after routine recovery and care. Job ID: [id number]
== END 2019-09-05 17:25 | disposition home or self-care (01) | DRG 806 ==
LOC: L&D 17:15 → 3SW 09-04 11:13
PROVIDERS: ADMIT Emergency Medicine; ATTEND Emergency Medicine
PROC: 10907ZC Drainage of Amniotic Fluid, Therapeutic from Products of Conception, Via Natural or Artificial Opening (ICD-10-PCS; principal; 2019-09-03)
PROC: 10E0XZZ Delivery of Products of Conception, External Approach (ICD-10-PCS; 2019-09-03)
PROC: 3E033VJ Introduction of Other Hormone into Peripheral Vein, Percutaneous Approach (ICD-10-PCS; 2019-09-03)
DX: O98.72 Human immunodeficiency virus [HIV] disease complicating childbirth (principal); D62 Acute posthemorrhagic anemia; Z37.0 Single live birth; O99.02 Anemia complicating childbirth; O99.824 Streptococcus B carrier state complicating childbirth; O70.0 First degree perineal laceration during delivery; Z3A.38 38 weeks gestation of pregnancy; Z21 Asymptomatic human immunodeficiency virus [HIV] infection status; D50.9 Iron deficiency anemia, unspecified; O90.81 Anemia of the puerperium
CPT/HCPCS: 36415; 85025; 85027; 86780; 86850; 86900; 86901; 87340; 88307; J2405; J2540; J2590; J3485; J3490; J7070

== ENCOUNTER 2020-06-18 15:34 | Outpatient (CLI) | payer OTHER ==
--- NOTE | 2020-06-18 16:01 | ULT ---
THYROID ULTRASOUND INDICATION: Thyroid nodule TECHNIQUE: Grayscale and color Doppler images were obtained of the thyroid gland. COMPARISON: None FINDINGS: Right thyroid lobe: The right thyroid lobe measures 4.7 x 1.5 x 1.5 cm. Thyroid isthmus: The thyroid isthmus measures 0.25 cm. Left thyroid lobe: The left thyroid lobe measures 4.0 x 1.8 x 1.4 cm. There is a 1.6 x 2.1 x 0.7 cm m ixed cystic and solid nodule within the medial lower lobe of the left thyroid gland. The lesion predominant parenchymal echogenicity is hyperechoic. The lesion is wider than tall. The margin is wel l-circumscribed. No suspicious calcifications are associated with the nodule. IMPRESSION: 1. TIRADS 2 lesion of the left thyroid lobe. Not suspicious. No additional follow-up recommended. 2. No additional suspicious thyroid abnormality.
== END 2020-06-18 15:35 | disposition home or self-care (01) ==
LOC: BICULT 15:34
PROVIDERS: ATTEND Otolaryngology Plastic Surgery within the Head & Neck
DX: E04.1 Nontoxic single thyroid nodule (principal)
CPT/HCPCS: 76536